=== PATIENT | female | born 1990 | race Caucasian/White ===

== ENCOUNTER 2016-10-30 15:01 | Emergency (ER) | payer BC, OTHER ==
[~2016-10-30] VITALS: Ht 162.6 cm; Wt 63.0 kg
[~2016-10-30 15:01] MED LIST: AMPH20TA2 PO
[2016-10-30 15:08] VITALS: TEMP 36.8; Ht 162.6 cm; Wt 63.0 kg
[2016-10-30] MEDS ORDERED: SODIUM CHLORIDE 0.9% 1000ML 1,000 ML IV STA (15:19)
[2016-10-30] MEDS ORDERED: AMPH20CA3 PO (15:36)
[2016-10-30 15:39] VITALS: O2SAT 100
[2016-10-30 15:45] LABS: BASO % 0.1 %; BASO ABS # 0.01 K/uL (0-0.2); COMPLETE YES; EOS % 1.2 %; HEMATOCRIT 40.8 % (37-47); IG% 0.1 %; LYMPH % 26.9 %; LYMPH ABS # 2.06 K/uL (1.2-3.4); MEAN CELL VOLUME 94.4 fL (80-100); MEAN CORPUSCULAR HEMOGLOBIN 32.9 pg (25-34); MEAN CORPUSCULAR HGB CONC 34.8 g/dl (32-36); MEAN PLATELET VOLUME 9.3 fL (7.4-10.4); MONO % 10.5 %; NEUT % 61.2 %; PLATELET COUNT 197 K/uL (130-400); RED BLOOD COUNT 4.32 M/uL (4.2-5.4); WHITE BLOOD COUNT 7.65 K/uL (4.8-10.8)
[2016-10-30] MEDS ORDERED: MAGNCAP3 PO (16:01)
[2016-10-30] MEDS ORDERED: MISCCAP80 PO (16:01)
[2016-10-30 16:02] LABS: BUN/CREATININE RATIO 22.1 (10-20); CALCIUM 8.8 mg/dl (8.5-10.1); POTASSIUM 3.7 mmol/L (3.5-5.1)
[2016-10-30 16:04] LABS: PREG INTERNAL NEGATIVE QC NEG CLEAR BACKGROUND; PREG INTERNAL POSITIVE QC POS CONTROL LINE
[2016-10-30 16:09] LABS: URINE APPEARANCE CLOUDY (CLEAR); URINE BILIRUBIN NEG (NEG); URINE COLOR YELLOW; URINE EPITHELIAL CELL AUTO >30 /lpf (0-5); URINE NITRITE NEG (NEG); URINE PH 5.5 (4.5-7.5); URINE SPECIFIC GRAVITY 1.013 (1.000-1.030); UROBILINOGEN NEG (NEG)
[2016-10-30 16:13] LABS: THYROID STIMULATING HORMONE 1.05 uIu/ml (0.300-4.500)
[2016-10-30 16:18] LABS: MANUAL MICROSCOPIC REQUIRED? NO; REVIEW REQ? YES
[2016-10-30 17:20] LABS: LYME DISEASE AB IGG NEG (NEG); LYME DISEASE AB IGM NEG (NEG)
[2016-10-30] MEDS ORDERED: MULTTAB58 PO (17:21)
[2016-10-30] MEDS ORDERED: SULF800T23 PO (18:54)
[2016-10-30] MEDS ORDERED: SEPTRA DS HOME PACK 1 EA VIAL PO ONE (19:00)
[2016-10-30 19:07] VITALS: BP 104/65; PULSE 80; O2SAT 99
--- NOTE | 2016-10-30 23:32 | EMERGENCY ROOM VISIT NOTE ---
History Report prepared by Deb: Kim Sibley Under the Supervision of: Dr. Robert Smith M.D. 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 She was standing in the checkout line at the grocery store when she developed sudden, sharp pain in her left lower back. She then started to feel lightheaded and dizzy and passed out. She is unsure if she hit her head but denies any pain or headache. The patient states that for the past few days she has felt tired and she has had a swollen lymph node in her left neck. She was not nauseous before her episode today, but states that she has been nauseated since she passed out. She notes that she broke out into a "cold sweat" after passing out. The patient rates her pain as a 5/10 in severity. She has never passed out before. She reports a personal history of ADHD and states that she took half of her dose of medication today. Pt denies headache, fevers, chills, visual changes, neck pain , chest pain, breathing difficulties, vomiting, abdominal pain, melena, hematochezia, urinary symptoms, numbness, rash, or other complaints. 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 Review of Systems See HPI for pertinent positives and negatives. A total of ten systems were reviewed and were otherwise negative. Past Medical & Surgical Medical Problems: (1) ADHD (attention deficit hyperactivity disorder) Surgical Problems: (1) History of tonsillectomy and adenoidectomy Family History Mitral valve disorder Social History Smoking Status: Never Smoker Marital Status: in relationship Current/Historical Medications Scheduled Magnesium Aspartate-Potassium (Potassium/Magnesium Aspar), 1 CAP PO DAILY Multiple Vitamin (Multivitamin), 1 TAB PO DAILY Probiotic Product (Probiotic), 1 CAP PO DAILY Sulfa/Trimethoprim (Bactrim Ds 800MG/160MG), 1 TAB PO BID Scheduled PRN Amphetamine-Dextroamphetamine 20MG (Adderall Xr 20MG), 20 MG PO BID PRN for Allergies Coded Allergies: Tetracycline (Unverified Adverse Reaction, Unknown, NAUSEA, 02/12/13) Physical Exam Vital Signs Date Time Temp Pulse Resp B/P Pulse Ox O2 Delivery O2 Flow Rate FiO2 10/30/16 19:07 80 14 104/65 99 10/30/16 18:25 89 10/30/16 18:22 88 16 119/55 97 Room Air 10/30/16 16:47 80 16 120/78 100 Room Air 10/30/16 15:39 100 Room Air 10/30/16 15:30 71 10/30/16 15:22 74 16 128/82 99 Room Air 76 123/73 75 112/72 10/30/16 15:08 36.8 83 18 123/72 99 Room Air Physical Exam GENERAL: Awake, alert, tired-appearing, in no distress HENT: Normocephalic, atraumatic. Oropharynx unremarkable. EYES: Normal conjunctiva. Sclera non-icteric. NECK: Supple. No nuchal rigidity. FROM. No JVD. Mild left-sided posterior cervical adenopathy. RESPIRATORY: Clear to auscultation. CARDIAC: Regular rate, normal rhythm. Extremities warm and well perfused. Pulses equal. ABDOMEN: Soft, non-distended. No tenderness to palpation. No rebound or guarding. No masses. RECTAL: Deferred. MUSCULOSKELETAL: Chest examination reveals no tenderness. The back is symmetrical on inspection without obvious abnormality. There is no CVA tenderness to palpation. No joint edema. LOWER EXTREMITIES: Calves are equal size bilaterally and non-tender. No edema. No discoloration. NEURO: Normal sensorium. No sensory or motor deficits noted. SKIN: No rash or jaundice noted. Medical Decision & Procedures ER Provider Diagnostic Interpretation: A repeat ECG reveals an ectopic atrial rhythm at 87, no ischemia, normal intervals, no significant change from previous ECG. Laboratory Results 10/30/16 15:35 Red Blood Count 4.32, Mean Corpuscular Volume 94.4, Mean Corpuscular Hemoglobin 32.9, Mean Corpuscular Hemoglobin Concent 34.8, Mean Platelet Volume 9.3, Neutrophils (%) (Auto) 61.2, Lymphocytes (%) (Auto) 26.9, Monocytes (%) (Auto) 10.5, Eosinophils (%) (Auto) 1.2, Basophils (%) (Auto) 0.1, Neutrophils # (Auto ) 4.68, Lymphocytes # (Auto) 2.06, Monocytes # (Auto) 0.80, Eosinophils # (Auto ) 0.09, Basophils # (Auto) 0.01 10/30/16 15:35 Test 10/30/16 15:35 10/30/16 15:45 White Blood Count 7.65 K/uL (4.8-10.8) Red Blood Count 4.32 M/uL (4.2-5.4) Hemoglobin 14.2 g/dL (12.0-16.0) Hematocrit 40.8 % (37-47) Mean Corpuscular Volume 94.4 fL (80-100) Mean Corpuscular Hemoglobin 32.9 pg (25-34) Mean Corpuscular Hemoglobin Concent 34.8 g/dl (32-36) Platelet Count 197 K/uL (130-400) Mean Platelet Volume 9.3 fL (7.4-10.4) Neutrophils (%) (Auto) 61.2 % Lymphocytes (%) (Auto) 26.9 % Monocytes (%) (Auto) 10.5 % Eosinophils (%) (Auto) 1.2 % Basophils (%) (Auto) 0.1 % Neutrophils # (Auto) 4.68 K/uL (1.4-6.5) Lymphocytes # (Auto) 2.06 K/uL (1.2-3.4) Monocytes # (Auto) 0.80 K/uL (0.11-0.59) Eosinophils # (Auto) 0.09 K/uL (0-0.5) Basophils # (Auto) 0.01 K/uL (0-0.2) RDW Standard Deviation 43.6 fL (36.4-46.3) RDW Coefficient of Variation 12.5 % (11.5-14.5) Immature Granulocyte % (Auto) 0.1 % Immature Granulocyte # (Auto) 0.01 K/uL (0.00-0.02) Anion Gap 11.0 mmol/L (3-11) Est Creatinine Clear Calc Drug Dose 73.7 ml/min Estimated GFR () 90.1 Estimated GFR (Non- 77.7 BUN/Creatinine Ratio 22.1 (10-20) Calcium Level 8.8 mg/dl (8.5-10.1) Magnesium Level 2.0 mg/dl (1.8-2.4) Total Bilirubin 0.6 mg/dl (0.2-1) Direct Bilirubin 0.1 mg/dl (0-0.2) Aspartate Amino Transf (AST/SGOT) 14 U/L (15-37) Alanine Aminotransferase (ALT/SGPT) 29 U/L (12-78) Alkaline Phosphatase 50 U/L (45-117) Troponin I < 0.015 ng/ml (0-0.045) Total Protein 7.5 gm/dl (6.4-8.2) Albumin 4.2 gm/dl (3.4-5.0) Thyroid Stimulating Hormone (TSH) 1.050 uIu/ml (0.300-4.500) Human Chorionic Gonadotropin, Qual NEG (NEG) Lyme Disease IgG Antibody NEG (NEG) Lyme Disease IgM Antibody NEG (NEG) Monoscreen NEG (NEG) Urine Color YELLOW Urine Appearance CLOUDY (CLEAR) Urine pH 5.5 (4.5-7.5) Urine Specific [place] 1.013 (1.000-1.030) Urine Protein NEG (NEG) Urine Glucose (UA) NEG (NEG) Urine Ketones 1+ (NEG) Urine Occult Blood NEG (NEG) Urine Nitrite NEG (NEG) Urine Bilirubin NEG (NEG) Urine Urobilinogen NEG (NEG) Urine Leukocyte Esterase MODERATE (NEG) Urine WBC (Auto) >30 /hpf (0-5) Urine RBC (Auto) 0-4 /hpf (0-4) Urine Hyaline Casts (Auto) /lpf (0-5) Urine Epithelial Cells (Auto) >30 /lpf (0-5) Urine Bacteria (Auto) 4+ (NEG) Urine Pathogenic Casts /lpf (0) Laboratory results reviewed by me Medications Administered Medications (Trade) Dose Ordered Sig/Virgie Route Start Time Stop Time Status Last Admin Dose Admin Sodium Chloride (Nss 1000ml) 1,000 ml @ 999 mls/hr Q1H1M STAT IV 10/30/16 15:19 10/30/16 16:19 DC 10/30/16 15:19 999 MLS/HR Trimethoprim/ Sulfamethoxazole (Sulfameth/ Trimeth Ds 800/ 160MG Home Pack) 1 homepack UD ONCE PO 10/30/16 19:00 10/30/16 19:01 DC 10/30/16 19:03 1 HOMEPACK ECG Indication: syncope Rate (beats per minute): 74 Rhythm: other (ectopic atrial rhythm) Findings: no acute ischemic change, other (normal intervals) ED Course 1519: NSS 1000 ml @ 999 mls/hr IV 1532: The patient was evaluated in room C10. A complete history and physical exam was performed. 1635: Orthostatic testing was negative. I reassessed the patient at this time. 1822: I updated the patient on her results and treatment plan. We are waiting on [facility] to call back. 184: At this time I spoke with Dr. Oliva of [facility]. We discussed the patient's case and the patient will follow-up in the office. 1856: I reassessed the patient at this time. She is feeling better and resting comfortably. I discussed the results and treatment plan with the patient. I answered all pertaining questions that she had. She expressed understanding and verbalized agreement. The patient will be discharged home. 1900[facility] reviewed and agree them. Additional history obtained from the family. The patient's history was concerning for syncope. Differential diagnosis: Etiologies such as vasovagal event, infection, hypoglycemia, electrolyte abnormalities, cardiac sources, intracerebral event, toxicologic, neurologic, as well as others were entertained. Physical examination: As above. Nonfocal. Clinically the patient was doing well. Vital signs stable. ER treatment provided: IV hydration with normal saline On reassessment the patient felt better. Bactrim Diagnostics interpretation by me: ECG: The labs revealed an unremarkable CBC and chemistry panel. Urinalysis was concerning for infection. The patient is not . Monoscreen negative. Lyme titer negative. Troponin negative. A single troponin was performed to evaluate for possible myocarditis as the patient has had malaise and this event as opposed to a coronary ischemic event with serial troponins necessary. Imaging studies: Deferred Consultation: A consultation was placed with the special education bus driver on-call, Dr. Oliva.. The case was discussed and diagnostics were reviewed. He recommended no further intervention regarding the ectopic atrial rhythm and the patient is young and healthy. Patient will follow-up in the office. The patient had a brief syncopal episode. She had an ectopic atrial rhythm but no history of tachycardias or significant palpitations. She has no shortness of breath or chest pain. She is resting comfortably. She is not orthostatic. She feels better after hydration. I will treat her urine for suspected infection. By the evaluation outlined above emergent etiologies such as serious bacterial infection, hypoglycemia, electrolyte abnormalities, cardiac sources, intracerebral event, toxicologic, neurologic,as well as others were deemed relatively unlikely. The patient was informed about the findings as listed above. All questions were answered and she was pleased with the treatment. Return instructions were outlined and the patient was discharged in stable condition. Outpatient prescription management: Bactrim Referral: The patient was referred back to her primary care physician for follow-up in 2 to 3 days for a recheck of the current condition as well as cardiology. The chart was completed utilizing [employer] Speech voice recognition software. Grammatical errors, random word insertions, pronoun errors, and incomplete sentences are an occasional consequence of this system due to software limitations, ambient noise, and hardware issues. Any formal questions or concerns about the content, text, or information contained within the body of this dictation should be directly addressed to the physician for clarification. Consults Time Called: 1810 Consulting Physician: Dr. Oliva Returned Call: 1845 At this time I spoke with Dr. Oliva of [facility]. We discussed the patient's case and the patient will follow-up in the office. Impression Primary Impression: Syncope Additional Impressions: UTI (urinary tract infection) Ectopic atrial rhythm Scribe Attestation The scribe's documentation has been prepared under my direction and personally reviewed by me in its entirety. I confirm that the note above accurately reflects all work, treatment, procedures, and medical decision making performed by me. Departure Information Dispostion Home / Self-Care Prescriptions Sulfa/Trimethoprim (Bactrim Ds 800MG/160MG) Tab 1 TAB PO BID, #4 TAB Prov: Robert Smith MD 10/30/16 Referrals Louie Chavira M.D. (PCP) Colton Oliva M.D. Forms HOME CARE DOCUMENTATION FORM, IMPORTANT VISIT INFORMATION Patient Instructions My [facility] Additional Instructions Trimethoprim-Sulfamethoxazole(Bactrim DS): Take one pill twice daily for 3 days for your urine infection. All antibiotics can cause diarrhea. If this occurs and you feel worse or it does not resolve in 1-2 days follow up with your doctor or return to the Emergency Department as this could be signs of serious underlying problems. Any medication can cause an allergic reaction, stop the pills immediately and return to the ER for rash, hives, breathing difficulties, or swelling. Ibuprofen(Motrin, Advil) may be used for fever or pain. Use 600mg every six hours as needed. Take with food. Avoid using more than 2400mg in a 24 hour period. Do not use 2400mg per day for more than three consecutive days without physician direction. Prolonged inappropriate use can lead to stomach upset or ulcers. (AND/OR) Acetaminophen(Tylenol) may be used for fever or pain. Use 1000mg every six hours as needed. Avoid using more than 4000mg in a 24 hour period. Rest and drink plenty of fluids as tolerated. Continue current medications. Return to the ER for passing out, chest pain, headache, persistent vomiting, fevers, abdominal pain, chest pains, difficulty breathing, black or bloody stools, worsening of your condition, or as needed. Follow up with cardiology on Tuesday to set an appointment for a recheck of your current condition. The number is listed below under Dr. lOiva. Problem Qualifiers Primary Impression: Syncope Syncope type: unspecified Qualified Codes: R55 - Syncope and collapse Additional Impressions: UTI (urinary tract infection) Urinary tract infection type: site unspecified Hematuria presence: without hematuria Qualified Codes: N39.0 - Urinary tract infection, site not specified
== END 2016-10-30 19:00 | disposition home or self-care (01) ==
LOC: C.EDB 15:03 → C.EDC 19:00
DX: R55 Syncope and collapse (principal); N39.0 Urinary tract infection, site not specified; I49.1 Atrial premature depolarization; Z90.89 Acquired absence of other organs

== ENCOUNTER → 2016-11-09 | Outpatient (CLI) | payer BC ==
[~2016-11-09] MED LIST changes: +AMPH20CA3 PO; -AMPH20TA2 PO; +MAGNCAP3 PO; +MISCCAP80 PO; +MULTTAB58 PO; +SULF800T23 PO
--- NOTE | 2016-11-09 15:25 | DIAGNOSTIC IMAGING REPORT ---
THYROID ULTRASOUND HISTORY: THYROID ENLARGEMENT COMPARISON: None. FINDINGS: Right lobe: Maximum dimension 5 cm. Mid pole nodule measuring 1.2 x 1.0 cm. Left lobe: 5.7 cm maximum dimension. Mild heterogeneity throughout. No well-defined nodular density. Isthmus: No nodules. IMPRESSION: 1. Mild heterogeneity of both thyroid lobes. 2. 1 cm nodule mid pole right thyroid lobe with findings of aspiration suggested Electronically signed by: John Santizo M.D. 11/09/2016 3:23 PM Dictated Date/Time: 11/09/2016 3:14 PM
== END | disposition home or self-care (01) ==
LOC: C.ULTRBC 14:53
PROVIDERS: ATTEND Physician Assistant
DX: E01.0 Iodine-deficiency related diffuse (endemic) goiter (principal)

== ENCOUNTER → 2016-11-19 | Outpatient (CLI) | payer BC ==
--- NOTE | 2016-11-19 13:41 | DIAGNOSTIC IMAGING REPORT ---
ULTRASOUND-GUIDED RIGHT LOBE THYROID FINE-NEEDLE ASPIRATION BIOPSY CLINICAL HISTORY: Right lobe thyroid nodule. COMPARISON STUDY: Thyroid ultrasonography dated 11/09/2016 FINDINGS: A timeout was performed. The risks the procedure were explained the patient informed consent was obtained. The patient was prepped in sterile fashion. The skin was anesthetized 1% lidocaine. Under ultrasound guidance, 2 passes into the patient's dominant right lobe nodule were performed utilizing a 25-gauge needle. Initial pathologic review indicates satisfactory material for diagnosis. IMPRESSION: Successful ultrasound-guided fine-needle aspiration biopsy of a right lobe thyroid nodule. Electronically signed by: Elfego Lazo M.D. 11/19/2016 1:40 PM Dictated Date/Time: 11/19/2016 1:39 PM
== END | disposition home or self-care (01) ==
LOC: C.ULTR 12:42
PROVIDERS: ATTEND Physician Assistant
DX: E04.1 Nontoxic single thyroid nodule (principal)

== ENCOUNTER → 2017-01-26 | Outpatient (CLI) | payer BC | END | disposition home or self-care (01) | LOC: C.PAPS 14:45 | PROVIDERS: ATTEND Physician Assistant | DX: Z01.419 Encounter for gynecological examination (general) (routine) without abnormal findings (principal) ==

== ENCOUNTER → 2017-01-26 | Outpatient (CLI) | payer BC ==
[2017-01-29 02:56] LABS: CHLAMYDIA TRACH RNA*** NOT DETECTED (NOT DETECTED); GC (NEIS GONORRHOEAE)RNA** NOT DETECTED (NOT DETECTED)
== END | disposition home or self-care (01) ==
LOC: C.LABSPEC 13:47
PROVIDERS: ATTEND Physician Assistant
DX: Z01.419 Encounter for gynecological examination (general) (routine) without abnormal findings (principal)

== ENCOUNTER → 2017-01-26 | Outpatient (CLI) | payer BC | END | disposition home or self-care (01) | LOC: C.LAB1850 10:20 | PROVIDERS: ATTEND Physician Assistant | DX: Z01.419 Encounter for gynecological examination (general) (routine) without abnormal findings (principal); Z11.3 Encounter for screening for infections with a predominantly sexual mode of transmission ==